=== PATIENT | female | born 1970 | race Caucasian/White ===

== ENCOUNTER 2018-11-09 16:07 | Observation (INO) | payer BC, SELFPAY ==
[2018-11-09 16:52] LABS: #Eosinphils 0.1 thou/uL (0.0-0.7); #Lymphocytes 3.5 thou/uL (1.20-3.40); #Monocytes 0.7 thou/uL (0.11-0.59); #Neutrophils 5.3 thou/uL (1.40-6.50); %Basophils 0.4 % (0.0-1.0); %Eosinophils 1.5 % (0.0-10.0); %Monocytes 7.3 % (0.0-10.0); %Neutrophils 54.8 % (42.0-75.0); Hemoglobin 13.4 g/dL (12.0-16.0); Mean Corpuscular HGB CONC 33.3 g/dL (32.0-36.0); Mean Corpuscular Hemoglobin 31.2 pg (27.0-31.0); Mean Corpuscular Volume 93.7 fL (78.0-98.0); Mean Platelet Volume 6.6 fL (7.4-10.4); Platelet Count 462 thou/uL (130-400); RBC Distribution Width 12.4 % (11.5-14.5); White Blood Cell (WBC) Count 9.7 thou/uL (4.8-10.8)
[2018-11-09 17:03] LABS: BHCG - Serum Negative (NEGATIVE); Pregs Control Background? CLEAR/WHITE (CLR/WHITE); Pregs Control Bar Appear? YES (CONTROL BAR)
[2018-11-09 17:13] LABS: ALT (SGPT) 16 U/L (8-55); AST (SGOT) 21 U/L (5-34); Albumin 3.8 g/dL (3.5-5.0); Alkaline Phosphatase 85 U/L (40-150); Anion Gap 13 mmol/L (10-20); BUN (Urea Nitrogen) 12 mg/dL (7.0-18.7); Bilirubin, Total 0.2 mg/dL (0.2-1.2); CK (CPK) 57 U/L (29-168); Calc. Creatinine Clearance 0 mL/min (70-130); Calcium 8.8 mg/dL (7.8-10.44); Carbon Dioxide 24 mmol/L (22-29); Chloride 106 mmol/L (98-107); Estimated GFR-MDRD 63; Globulin 3.5 g/dL (2.4-3.5); Glucose 102 mg/dL (70-105); Potassium 4.2 mmol/L (3.5-5.1); Protein, Total 7.3 g/dL (6.0-8.3); Sodium 139 mmol/L (136-145)
[2018-11-09] MEDS ORDERED: Nitroglycerin 0.4 MG TAB (25 Tab Bottle) ONE (17:20)
--- NOTE | 2018-11-09 18:05 | RAD ---
SINGLE VIEW OF THE CHEST: 11/09/18 COMPARISON: None. HISTORY: Cough and shortness of breath. FINDINGS: Single view of the chest shows a normal sized cardiomediastinal silhouette. There is no evidence of c onsolidation, mass, or pleural effusion. The bones are unremarkable. IMPRESSION: No evidence of acute cardiopulmonary disease. POS: [facility]
[2018-11-09 19:58] VITALS: BMI 36.8
[2018-11-10] MEDS ORDERED: Bisacodyl 5 MG TAB PO PRN ×2 (00:06→08:25)
[2018-11-10] MEDS ORDERED: Senokot S 8.6-50 MG TAB PO PRN (00:06)
[2018-11-10] MEDS ORDERED: Acetaminophen 325 MG TAB PO PRN ×2 (00:06→08:25)
[2018-11-10 05:53] LABS: #Eosinphils 0.2 thou/uL (0.0-0.7); #Monocytes 0.7 thou/uL (0.11-0.59); #Neutrophils 5.1 thou/uL (1.40-6.50); %Basophils 0.4 % (0.0-1.0); %Eosinophils 1.9 % (0.0-10.0); %Lymphocytes 33.5 % (21.0-51.0); %Monocytes 7.3 % (0.0-10.0); %Neutrophils 56.9 % (42.0-75.0); Hemoglobin 13.4 g/dL (12.0-16.0); Mean Corpuscular HGB CONC 33.5 g/dL (32.0-36.0); Mean Corpuscular Hemoglobin 31.3 pg (27.0-31.0); Mean Corpuscular Volume 93.5 fL (78.0-98.0); Mean Platelet Volume 6.6 fL (7.4-10.4); Platelet Count 414 thou/uL (130-400); RBC Distribution Width 12.4 % (11.5-14.5); Red Blood Cell (RBC) Count 4.29 mill/uL (4.20-5.40)
[2018-11-10 06:18] LABS: Anion Gap 10 mmol/L (10-20); BUN (Urea Nitrogen) 9 mg/dL (7.0-18.7); Calc. Creatinine Clearance 119 mL/min (70-130); Carbon Dioxide 25 mmol/L (22-29); Chloride 107 mmol/L (98-107); Estimated GFR-MDRD 68; Glucose 90 mg/dL (70-105); Potassium 4.1 mmol/L (3.5-5.1); Sodium 138 mmol/L (136-145)
[2018-11-10] MEDS ORDERED: Famotidine 20 MG TAB PO SCH ×2 (09:00)
[2018-11-10] MEDS ORDERED: Aspirin 325 MG TAB PO SCH (09:00)
[2018-11-10] MEDS ORDERED: Famotidine/PF 20 mg/2ml Vial SLOW IVP SCH (09:00)
--- NOTE | 2018-11-10 10:29 | HP ---
PRIMARY CARE PHYSICIAN: Dr. Josué Tyler at [facility]. CHIEF COMPLAINT: Chest pain. HISTORY OF PRESENT ILLNESS: Ms. Cifuentes is a pleasant 48-year-old female, who has a history of coronary artery disease and she is status post stent placement about 2 years ago. She was in her usual state of health until yesterday. Around noontime, she says she was eating a snack at her break and then she started feeling some tightness in the left side of her chest underneath her breast and also in the middle of her chest. She said she went to the bathroom because she thought she might have some gas and so she tried different positions to try to get rid of the gas, but it did not help, then she even had to lay on the floor for a little while. The pain got worse and worse and she says that when she started to get up, she felt dizzy. She said at the peak of the pain, it was about 8 to 9/10 and it is felt like a vise going through her chest to her back. She also said that she had some nausea and vomiting along with it and her coworkers noticed what was happening and called for an ambulance. In the ambulance, she was given a sublingual nitroglycerin, where she says her symptoms started to get better. It went down to about 5/10. When asked if she has been active lately, she says that she has been doing circuit training and cardio and has lost 25 pounds in the last few months. She also says that she stopped smoking in June of this year. She also says that she had a cardiac catheterization by Dr. Louie at [facility], and this was in about February of this year and stated it was "fine" and was told that she could stop taking Plavix. She also says that she stopped taking her other medications including carvedilol and another medication she says because her blood pressure was so low, she could barely function on the medications. Otherwise, she denies any PND nor orthopnea. No lower extremity edema. REVIEW OF SYSTEMS: All systems were reviewed and are negative except for that mentioned in the history of present illness. PAST MEDICAL HISTORY: Significant for coronary artery disease, status post stent; has a history of antithrombin III; hypertension; and systemic lupus erythematosus. PAST SURGICAL HISTORY: She has had a stent placed in May of 2017, hysterectomy due to cervical dysplasia. ALLERGIES: ALLERGIES ARE TO TETRACYCLINE AND ETHYL ALCOHOL. FAMILY HISTORY: Significant for pulmonary fibrosis. SOCIAL HISTORY: She is , has 2 children. She is a former smoker. She smoked for about 5 years for about half a pack of cigarettes a day. She denies any alcohol use. She works as a nurse. CURRENT MEDICATIONS: None. PHYSICAL EXAMINATION: GENERAL: She is alert and oriented. She appears to be in no acute distress. She is well developed and well nourished. VITAL SIGNS: Blood pressure was 101/68, heart rate 94, respiratory rate of 16, and temperature is 98.8. HEENT: Her pupils are equal, round, and reactive. Extraocular muscles are intact. Her sclerae are anicteric. Throat, there is no erythema. No exudates. NECK: No adenopathy. No bruits. LUNGS: Clear to auscultation. There is no wheezing, no rales, no rhonchi. CARDIOVASCULAR: She had a normal S1 and S2. I did not appreciate an S3 or S4. No murmurs, clicks, or rubs. ABDOMEN: Obese. It is soft, nontender, and nondistended. Positive for bowel sounds. There is no rebound or guarding. No organomegaly. EXTREMITIES: There is no clubbing or cyanosis. No edema. No calf tenderness. No joint effusions or warmth. NEUROLOGIC: Her cranial nerves II through XII are grossly intact. Muscle strength is intact. SKIN AND INTEGUMENT: No skin changes. No rash. LABORATORY DATA AND X-RAY FINDINGS: On her chest x-ray, heart size is normal. There is no effusion or any airspace disease, this is by my reading. She also had an EKG that was sinus rhythm. The rate was 90. There was low voltage. She had a left anterior fascicular block. Her chemistry panel was completely normal. Troponin, she has had 3 sets of troponin, which were negative. CBC is essentially negative with a white blood cell count of 9.0, hemoglobin 13.4, hematocrit was 40.1, platelet count was 414. Urine test was negative. ASSESSMENT AND PLAN: This is a pleasant 48-year-old female, who presents to the emergency room with atypical chest pain. She has a history of coronary artery disease in the past and she says her symptoms were similar to that when she had her myocardial infarction. However, given the recent cardiac catheterization, which was reported to be negative, it is unlikely that this represents an acute coronary event. However, we will go ahead and place her in observation and get a nuclear stress test. The nuclear stress test is needed given her baseline EKG abnormalities. Get a lipid panel and further assess her risks for coronary artery disease. We will also check a lipase in the event that this is some type of GI problem. She has stated that she is needed to use an additional amount of Tums lately and we may discharge her on a low-dose aspirin, possibly in a very low dose of carvedilol as tolerated and see if she needs a statin. Job ID: [id number]
[2018-11-10 11:32] LABS: Cardiac Risk 4.1 (Less than 4.5)
--- NOTE | 2018-11-10 13:36 | NM ---
NUCLEAR MEDICINE CARDIAC STRESS TEST WITH EJECTION FRACTION: HISTORY: Chest pain. COMPARISON: None. TECHNIQUE: Stress and rest was performed after the intravenous administration of 27 and 9.5 mCi technetium-99m s estamibi intravenously, respectively. FINDINGS: No scar or ischemia. Normal wall motion. Calculated ejection fraction is 67%. IMPRESSION: Normal exam. POS: [facility]
[2018-11-10 15:48] LABS: CRP (Inflammatory) 0.97 mg/dL (= or < 0.5); Complement-C4 24.9 mg/dL (15-57)
[2018-11-10 15:54] VITALS: BP 134/73; TEMP 99
--- NOTE | 2018-11-11 08:49 | DIS ---
DATE OF ADMISSION: 11/09/2018 DATE OF DISCHARGE: 11/10/2018 PRIMARY CARE PHYSICIAN: Dr. Josué Tyler. DISCHARGE DISPOSITION: Home. PRIMARY DISCHARGE DIAGNOSES: 1. Chest pain, probable, noncardiac. 2. Coronary artery disease. 3. Systemic lupus erythematosus. 4. Antithrombin III disorder. DISCHARGE MEDICATIONS: Include; 1. Aspirin 81 mg daily. 2. Crestor 5 mg at bedtime. PROCEDURES DONE: During the admission, the patient had a nuclear stress test, which was negative. CODE STATUS: Full code. ALLERGIES: ALLERGIES ARE TO ETHYL ALCOHOL AND TETRACYCLINE. HOSPITAL COURSE: Ms. Cifuentes is a pleasant 48-year-old female, who presented to the emergency room with complaints of chest pain. The full details of which are outlined in the history and physical. She was placed in observation. She was ruled out with serial troponins and underwent a nuclear stress test, which was negative. She even reports having a recent cardiac catheterization, which was negative in 2017. Given this, I think it is safe to discharge the patient home. She had been off all medications. We will restart a low-dose aspirin at 81 mg daily as well as low-dose Crestor as her LDL was 84. Some of her symptoms sound like it could be GI related and I also explained to her to give a trial of [id number] Prilosec or Nexium to see if that will help with her symptoms and she is to follow up with her primary care physician in 1 week. We also luis a lab work for CRP as well as C3 and C4, which can be followed up with her primary care physician as well. Job ID: [id number]
== END 2018-11-10 16:21 | disposition home or self-care (01) ==
LOC: ERS 16:07 → 2SW 18:08
PROVIDERS: ADMIT Internal Medicine; ATTEND Internal Medicine
DX: R07.89 Other chest pain (principal); I25.10 Atherosclerotic heart disease of native coronary artery without angina pectoris; M32.9 Systemic lupus erythematosus, unspecified; D68.8 Other specified coagulation defects; I10 Essential (primary) hypertension; Z87.891 Personal history of nicotine dependence; Z88.1 Allergy status to other antibiotic agents; Z91.048 Other nonmedicinal substance allergy status; Z95.5 Presence of coronary angioplasty implant and graft
CPT/HCPCS: 36415; 71045; 78452; 80048; 80053; 80061; 82550; 83690; 84484; 84703; 85025; 86140; 86160; 93005; 93017; 94760; A9500; G0378